=== PATIENT | female | born 1950 | race Caucasian/White ===

== ENCOUNTER 2018-06-29 19:28 | Emergency (ER) | payer MEDICARE, OTHER ==
[~2018-06-29] VITALS: Ht 167.6 cm; Wt 74.8 kg
[~2018-06-29 19:28] MED LIST: METFORMIN HCL500 MG PO; PHENAZOPYRIDIN200 M2 PO; TRAMADOL 50 MG50 MG PO
[2018-06-29] MEDS ORDERED: ZANTAC 150MG T150 M1 PO (19:40)
[2018-06-29] MEDS ORDERED: FLEXERIL PO (20:01)
[2018-06-29] MEDS ORDERED: IBUPROFEN 400400 M1 PO (20:01)
[2018-06-29] MEDS ORDERED: DELTASONE20 MG PO (20:01)
[2018-06-29] MEDS ORDERED: NORCO 5-325 TA1 EACH PO (20:23)
[2018-06-29 20:36] VITALS: BP 163/73
== END 2018-06-29 20:41 | disposition home or self-care (01) ==
LOC: M.ERS 19:28
DX: M54.32 Sciatica, left side (principal); E11.9 Type 2 diabetes mellitus without complications

== ENCOUNTER → 2019-01-17 | Outpatient (CLI) | payer MEDICARE, OTHER ==
[~2019-01-17] MED LIST changes: +DELTASONE20 MG PO; +FLEXERIL PO; +IBUPROFEN 400400 M1 PO; +NORCO 5-325 TA1 EACH PO; +ZANTAC 150MG T150 M1 PO
--- NOTE | ~2019-01-17 | PAINCON ---
[address] [address] PAIN MANAGEMENT CONSULTATION Name: AFRNAZ TELLO Room: KEIKO Yanes#: [id number] Admission: 01/17/19 Attend Phys: Brendan Henning MD Discharge: Date of : 46 Report #: [id number] THIS REPORT FOR: //name// CC: Josseline Weaver DATE OF SERVICE: 01/17/2019 CHIEF COMPLAINT: Back and leg pain. HISTORY OF PRESENT ILLNESS: The patient is a 68-year-old female who has been referred to the pain clinic for evaluation of back and leg pain. The patient states that in the past, she had had some problems with her sciatic nerve. She has noticed pain, which has started to escalate. It involves her lower back. It involves both the right and left leg. Notes pain that is radiating down the lateral side of her right leg with numbness and tingling as it crosses over the front of her leg and down into her foot with involvement of her big toe. She notes some weakness in her leg. Notes that she has had some similar discomfort on the left side, it is not as problematic. She was seen in the Emergency Room. States that she underwent a steroid injection, which helped. She was also given tramadol. This seemed to help her pain and discomfort for a number of months. Now it has risen to the level that is uncomfortable. She rates it as a 6/10. No new bowel or bladder function problems. She is having some difficulty sleeping. States that this causes her to flip and flop in bed. Does have some numbness and burning in her feet. She has had this prior to the back problem. She attributes this to her diabetes. Notes that her pain is problematic when she wakes up, but increases as the day progresses. Activities such as cleaning, washing, and other daily activities to clean her house exacerbate the pain. Initially when she had the pain, pain became so problematic. She had problems walking. States that she has an MRI and there were some problems noted on her MRI. She has come to the pain clinic for evaluation. ALLERGIES: No known drug allergies. MEDICATIONS: Metformin 1000 mg b.i.d., glipizide 5 mg, and levothyroxine 100 mg. PAST MEDICAL HISTORY: Diabetes type 2 and sciatic nerve pain in the past. PAST SURGICAL HISTORY: Cholecystectomy 1967, hysterectomy in 1995. SOCIAL HISTORY: The patient is a housewife. She does not work outside the house. REVIEW OF SYSTEMS: Generally good health, wears glasses, hearing loss, [place] [address] PAIN MANAGEMENT CONSULTATION Name: FARNAZ TELLO JOSEFA Room: [facility] Joqauín#: [id number] Admission: 01/17/19 Attend Phys: Brendan Henning MD Discharge: Date of : 46 Report #: [id number] shortness of breath with walking, painful bowel movements, constipation, awakens at night to urinate, joints stiffness, back pain, diabetes, numbness and tingling sensation, and tremors. DIAGNOSTIC DATA: MRI of the lumbar spine dated 12/06/2018: 1. L2-L3, mild circumferential bulging annulus with narrowing of the neural foramen. Mild hypertrophy. Thecal sac 1 cm AP. 2. L1-L2, intervertebral disk appear normal. Thecal sac 1.4 cm AP. 3. L3-L4, intervertebral disk facets and foramen appear normal. Thecal sac 1.1 cm AP. 4. L4-L5, circumferential disk bulging with flattening of the central thecal sac. Narrowing of the neural foramen. Encroachment lateral recesses 1.0 cm AP. 5. Circumferential bulging narrowing of the neural foramen, abutting the anterior S1 nerve roots. The thecal sac is intact. Mild facet hypertrophy. Thecal sac 1.0 cm AP. PAIN CLINIC ASSESSMENT/PQRS: 1. The patient is not being treated for osteoarthritis or rheumatoid arthritis. 2. Height was 5 feet 7 inches, weight 158 pounds, BMI is 24.8. 3. Vital signs: Blood pressure 152/83, heart rate 86, respiratory rate 16, room air saturation 97%, temperature 98.4. 4. Pain intensity 6/10. 5. Fall history: The patient has not fallen in the last 3 months. 6. Blood thinner. The patient is not on a blood thinning medication. 7. Hypertension. The patient is not being treated for hypertension. 8. Opioids greater than 6 weeks. The patient is not on an opiate regimen. 9. Functional assessment score 36/70. 10. Recreational drug use. The patient denies use of recreational drugs. 11. Tobacco: The patient denies use of tobacco. 12. Alcohol: The patient denies use of alcoholic beverages. PHYSICAL EXAMINATION: GENERAL: The patient is a well-developed, well-nourished white female. Appears her stated age. She is alert, oriented x 3. Her affect is appropriate. Speech is fluent. HEENT: Normocephalic, atraumatic. Extraocular eye muscles intact. Sclerae nonicteric. Mucous membranes are moist. NECK: Without adenopathy or JVD. HEART: Regular rate. LUNGS: Clear to auscultation. EXTREMITIES: Upper extremity muscle strength is judged to be 5-/5 for the major muscle groups in the upper extremities. Deep tendon reflexes are +2 in the upper extremities, +2 at the knees and +1 in the ankles. The patient without significant scoliosis, kyphosis, or lordosis. Forward leaning to 90 degrees cause some increased back pain. Lumbar extension was not very problematic. Left and right lateral rotation were not problematic. [place] [address] PAIN MANAGEMENT CONSULTATION Name: FARNAZ TELLO Room: [facility] HaleyDrew#: [id number] Admission: 01/17/19 Attend Phys: Brendan Henning MD Discharge: Date of : 46 Report #: [id number] increased pain with left and right lateral bending. The patient has pain and discomfort in the lower portion of her back with pain radiating down the lateral portion of her right leg into the calf of her right leg with some pain on the dorsum of her foot. Also, notes some pain that radiates down into the lateral side of her left leg. The patient notes numbness, sensory changes with numbness, tingling, and muscle weakness. IMPRESSION: 1. Lumbar radiculopathy involving the L4-L5 dermatomal distribution on the right as well as left. 2. Diabetes type 2. 3. Sciatic nerve pain. RECOMMENDATIONS: We discussed treatment options with the patient. Risks and benefits of an epidural steroid injection were discussed. They include but are not limited to infection, worsening of pain, no improvement in pain, increase pain, nerve damage, and spinal headache. The patient elects to proceed. PROCEDURE NOTE: The patient was taken to the procedure area. She was then assisted in getting on the examination table. Her back was sterilely prepped with a Betadine solution. A pillow was placed on her abdomen to bolster and improve positioning. Fluoroscopy using anterior, posterior as well as lateral viewing were implemented. The patient's back at L4-L5 was sterilely prepped. 0.25% bupivacaine using a midline approach were undertaken. After this area had been anesthetized. A 17-gauge Tuohy with loss of resistance technique using a midline approach was undertaken. Aspiration was negative. A total of 80 mg Depo-Medrol, 40 mg triamcinolone and 2 mL of 0.25% bupivacaine was injected. The patient tolerated the procedure well. There were no complications. We would like to thank you for letting us participate in her care. We hope she continues to improve. By: [id number]. Elvis Henning MD /AMADOU
== END | disposition home or self-care (01) ==
LOC: M.PC 02:26
DX: M54.16 Radiculopathy, lumbar region (principal); G89.29 Other chronic pain; E11.9 Type 2 diabetes mellitus without complications; M54.31 Sciatica, right side; M54.32 Sciatica, left side; Z90.49 Acquired absence of other specified parts of digestive tract; Z90.710 Acquired absence of both cervix and uterus; Z79.899 Other long term (current) drug therapy; Z98.890 Other specified postprocedural states

== ENCOUNTER 2020-08-02 11:18 | Emergency (ER) | payer MEDICARE, OTHER ==
[~2020-08-02] VITALS: Ht 172.7 cm; Wt 71.2 kg
[2020-08-02] MEDS ORDERED: LEVOTHYROXINE13 MCG PO (11:28)
[2020-08-02] MEDS ORDERED: GLIPIZIDE 10 MG10 MG PO (11:28)
[2020-08-02 12:10] LABS: INFLUENZA A ANTIGEN Negative (Negative); INFLUENZA B ANTIGEN Negative (Negative)
[2020-08-02] MEDS ORDERED: PREDNISONE 20 M20 M1 PO (12:55)
[2020-08-02] MEDS ORDERED: ZPAK PO (12:55)
[2020-08-02 13:11] VITALS: BP 141/70
== END 2020-08-02 13:12 | disposition home or self-care (01) ==
LOC: M.ERS 11:18
PROVIDERS: Emergency Medicine Emergency Medical Services
DX: U07.1 COVID-19 (principal); E11.9 Type 2 diabetes mellitus without complications

== ENCOUNTER 2020-08-07 11:45 | Emergency (ER) | payer MEDICARE, OTHER ==
[~2020-08-07] VITALS: Ht 172.7 cm; Wt 70.8 kg
[~2020-08-07 11:45] MED LIST changes: +GLIPIZIDE 10 MG10 MG PO; +LEVOTHYROXINE13 MCG PO; +PREDNISONE 20 M20 M1 PO; +ZPAK PO
[2020-08-07] MEDS ORDERED: PROAIR HFA8.5 GM INH (13:41)
[2020-08-07] MEDS ORDERED: APAP W/CODEINE1 TA2 PO (13:41)
[2020-08-07] MEDS ORDERED: TESSALON PERLE100 MG PO (13:41)
[2020-08-07 14:00] VITALS: BP 136/82
== END 2020-08-07 14:03 | disposition home or self-care (01) ==
LOC: M.ERS 11:45
DX: U07.1 COVID-19 (principal); E11.9 Type 2 diabetes mellitus without complications

== ENCOUNTER → 2021-05-31 | Outpatient (CLI) | payer OTHER ==
[~2021-05-31] MED LIST changes: +APAP W/CODEINE1 TA2 PO; +PROAIR HFA8.5 GM INH; +TESSALON PERLE100 MG PO
--- NOTE | 2021-05-31 16:12 | EXE ---
[place] [address] STRESS ECHOCARDIOGRAM Name: FARNAZ TELLO Room: [facility] JackieStorm#: [id number] Admission: 05/31/21 Attend Phys: Josseline Sparrow DO Discharge: Date of : 46 Date of Service: 05/31/21 1611 Report #: [id number] THIS REPORT FOR: cc: Josseline Sparrow Maggie M. DO Holkins, John M. MD [facility] ~ APPROVED REPORT Study performed: 05/31/2021 15:06:43 Exam: Stress Echocardiogram Indication: Dyspnea , Chest pain Patient Location: Out-Patient Stress Nurse: Radha Mendez RN Supervising Physician: Jasbir Lopez MD Ht: 5 ft 7 in HR: 103 bpm BP: 164/88 mmHg Medical History Cardiac Risk Factors: Hyperlipidemia, DM Procedure The patient underwent an Exercise Stress Test using the Diomedes Protocol. Blood pressure, heart rate, and EKG were monitored. An Echocardiogram was performed by electrical assembly technician in four stages in quad fashion. At peak stress, four selected images were obtained and placed side by side with resting images for comparison. Stress Test Details Stress Test: Exercise stress testing was performed using a Diomedes protocol. HR Resting HR: 103 bpm Max Heart Rate (APMHR): 147 bpm Max HR Achieved: 154 bpm Target HR (85% APMHR): 124 bpm % of APMHR: 104 Recovery HR: 94 bpm HR response to stress: Normal HR response to stress BP Resting BP: 164/88 mmHg Max BP: 206/83 mmHg Recovery BP: 166/82 [place] [address] STRESS ECHOCARDIOGRAM Name: FARNAZ TELLO JOSEFA [id number] Admission: 05/31/21 Attend Phys: Josseline Sparrow DO Discharge: Date of : 46 Date of Service: 05/31/21 1611 Report #: [id number] BP response to stress: Normal blood pressure response to stress. ECG Resting ECG: sinus rhythm with rare pac's, nonspecific inferolateral st-t changes Stress ECG: minor nonspecific st-t changes superimposed on the baseline Arrhythmia: rare pac's and pvc's Recovery ECG: gradual return to baseline; no ischemic st -t changes Recovery Arrhythmia: rare pac's and pvc's Clinical Reason for Termination: Completed protocol Exercise duration: 6 min 06 sec Highest Stage Achieved: Stage 2: 2.5 mph at 12% grade. Exercise capacity: 7.24 METs Pre-Stress Echo The resting Echocardiogram showed normal left ventricular contractility with an estimated Ejection Fraction of about 60-65%. Normal wall motion in all segments on baseline images. Post-Stress Echo The stress Echocardiogram showed normal left ventricular contractility with an estimated Ejection Fraction of about >70%. Normal augmentation of wall motion in all segments on post stress images. Conclusion Clinical Response: Non-ischemic Exercise Capacity: Average Stress ECG Response: Indeterminant Stress Echo Images: Non-ischemic Other Information Study Quality: Good <ELECTRONICALLY SIGNED> By: Jasbir Lopez MD, FACC 05/31/211610 10 10 Jasbir Lopez MD, FACC /INF
== END ==
LOC: M.CRD 14:39
PROVIDERS: ATTEND Family Medicine
DX: R06.02 Shortness of breath (principal)

== ENCOUNTER 2021-09-23 17:33 | Emergency (ER) | payer OTHER ==
[~2021-09-23] VITALS: Ht 170.2 cm; Wt 70.3 kg
[2021-09-23] MEDS ORDERED: METFORMIN HCL500 M3 PO (17:44)
[2021-09-23] MEDS ORDERED: FLEXERIL PO (18:51)
[2021-09-23 19:13] VITALS: BP 169/84
== END 2021-09-23 19:13 | disposition home or self-care (01) ==
LOC: M.ERS 17:33
DX: S00.93XA Contusion of unspecified part of head, initial encounter (principal); E11.9 Type 2 diabetes mellitus without complications; Z79.51 Long term (current) use of inhaled steroids; Z79.84 Long term (current) use of oral hypoglycemic drugs; Z79.899 Other long term (current) drug therapy; W22.8XXA Striking against or struck by other objects, initial encounter; Y93.89 Activity, other specified; Y92.89 Other specified places as the place of occurrence of the external cause; Y99.8 Other external cause status